=== PATIENT | female | born 1970 | race African-American/Black ===

== ENCOUNTER 2021-01-16 07:52 | Day surgery (SDC) | payer OTHER ==
[2021-01-16 08:22] LABS: Absolute Lymphocytes (CBC) 1.5 K/uL (0.7-4.9); Basophils % 0.5 % (0-1.3); Hematocrit 39.8 % (36.0-45.0); MPV 8.2 fL (7.6-11.3); RBC Red Blood Cell Count 4.01 M/uL (3.86-4.86)
[2021-01-16] MEDS ORDERED: NS 0.9% VIAL 30 ML ONE (08:35)
[2021-01-16] MEDS ORDERED: CEFAZOLIN SODIUM 1 GM/VIAL ONE ×3 (08:36→14:53)
[2021-01-16] MEDS ORDERED: Ringers Lactate 1,000 ML IV ONE ×3 (08:36→08:58)
[2021-01-16] MEDS ORDERED: GENTAMICIN SULF 80 MG/2ML INJ ONE (08:36)
[2021-01-16] MEDS ORDERED: Mastisol Adhesive Liq ONE (08:36)
[2021-01-16] MEDS ORDERED: LIDOCAINE 1% W/EPI 1:100,000 MDV 20 ML VIAL ONE (08:36)
[2021-01-16] MEDS ORDERED: SCOPOLAMINE HYDROBROMIDE PATCH TD ONE (08:57)
[2021-01-16] MEDS ORDERED: CEFAZOLIN/SWI 1gm 1 GM/10 ML SYR ONE (08:58)
--- NOTE | 2021-01-16 09:23 | RAD REPORT ---
EXAM DESCRIPTION: RAD - Chest Pa And Lat (2 Views) - 01/16/2021 9:14 am CLINICAL HISTORY: STAT, SAME DAY SUERGERY, BED 8 Chest pain. COMPARISON: No comparisons FINDINGS: The lungs are clear. The heart is normal in size. No displaced fractures. IMPRESSION: No acute or concerning finding suspected.
[2021-01-16] MEDS ORDERED: ONDANSETRON 4 MG/2 ML VIAL ONE ×2 (10:49→15:42)
[2021-01-16] MEDS ORDERED: VECURONIUM 10 MG/VIAL IV ONE (10:49)
[2021-01-16] MEDS ORDERED: KETOROLAC 30 MG/ML INJ ONE (10:49)
[2021-01-16] MEDS ORDERED: dexAMETHasone 10 MG/ML VIAL ONE (10:49)
[2021-01-16] MEDS ORDERED: ROCURONIUM 50 MG/5 ML VIAL IV ONE (10:49)
[2021-01-16] MEDS ORDERED: LIDOCAINE 2% MPF 5 ML VIAL ONE (10:49)
[2021-01-16] MEDS ORDERED: MIDAZOLAM HCL 2 MG/2 ML INJ ONE (10:49)
[2021-01-16] MEDS ORDERED: FENTANYL CITR 250 MCG/5 ML ONE (10:49)
[2021-01-16] MEDS ORDERED: propofoL 200 MG/20 ML VIAL IV ONE (10:49)
[2021-01-16] MEDS ORDERED: NS 0.9% VIAL 10 ML ONE ×3 (10:49→14:53)
[2021-01-16] MEDS ORDERED: NS 0.9% VIAL 20 ML ONE (10:50)
[2021-01-16] MEDS ORDERED: MORPHINE 10 MG/ML VIAL ONE (13:36)
[2021-01-16] MEDS ORDERED: GLYCOPYRROLATE 0.2 MG/ML SYR ONE (14:57)
[2021-01-16] MEDS ORDERED: NEOSTIGMINE 1 MG/ML -5 ML ONE (15:17)
[2021-01-16] MEDS ORDERED: HYDROCODONE/APAP 7.5/325 MG TAB ONE (16:07)
[2021-01-16 16:09] VITALS: BP 112/67; TEMP 98; O2SAT 99
--- NOTE | 2021-01-17 01:56 | OP ---
Surgeon: Gideon Bravo MD Preoperative Diagnosis: Breast enlargement and descent. Postoperative Diagnosis: Breast enlargement and descent. Procedure Performed: Breast reduction. Anesthesia: General. Operative Note: After satisfactory induction of general anesthesia, the chest was prepped with DuraP rep and dry sterile drapes applied in the usual manner. A 5 cm template was used to outline the righ t and left areolas. Then transverse curvilinear incisions were made. The skin was deepithelialized with dermabrader on the right side. An incision was made down through the dermis with electrocautery used to raise the flaps with sternum, clavicle, anterior axillary line. The inferior incision was t hen made and the deepithelialized tissue was formed in a cone. Prior to that, however, excess breast tissue was excised. Conization was performed with 2-0 PDS sutures. The straps were elevated at 12 o'clock, 1:30, and 3 o'clock position on the right breast. The straps were then woven in and out of the pectoralis muscle back to the base of the cone, back to pectoralis muscle, back to base of cone, tied themselves with 2-0 PDS sutures. This was done for 12 o'clock and 1:30 straps. The 3 o'clock s trap was sewn over the sternum at 3 o'clock with 2-0 Ethibond. The wound was temporally stapled shut . Left side done in a mirror-image manner. The patient then returned supine. Dog ears were then ma rked and medial lateral were excised and then the wound irrigated with antibiotic solution. A 10 MARIA A was brought out of the axilla, sewn in place with 2-0 silk. Wound closed with 3-0 Vicryl subcu and 3 -0 PDS running subcuticular from medial to lateral, lateral to medial, tied in the vertical meridian of the breast. Left side was done in a mirror-image manner. The patient was then sat up. Site for new nipple-areolar complex was marked out. Tissue cored out and then nipple-areolar complex sewn wit h interrupted 4-0 PDS, followed by 4-0 PDS running subcuticular. Dressings of tincture of benzoin, S janeth-Strips, followed by Esmarch, fluffs, and Pierce wrap. The patient tolerated the procedure well. P rior to closure, 10 MARIA A drain was brought out, both sides, and sewn with 2-0 silk. The amount removed from the right breast was 648 and the left breast was 396. OG/MEG Voice ID: [id number] Report ID: [id number]
== END 2021-01-16 16:50 | disposition home or self-care (01) ==
LOC: OR 07:52
PROVIDERS: ATTEND Specialist
PROC: 0HSV0ZZ Reposition Bilateral Breast, Open Approach (ICD-10-PCS; principal; 2021-01-16 09:00)
DX: N64.81 Ptosis of breast (principal); Z20.822 Contact with and (suspected) exposure to COVID-19
CPT/HCPCS: 93005; 85025; 36415; 84703; 88305; 71046; 19316; U0003; J2704; J1580; J2250; J3010; J1100; J2710; J0690 ×4; J7120 ×3; J2405 ×2